=== PATIENT | female | born 1990 | race Caucasian/White ===

== ENCOUNTER 2017-03-03 09:21 | Emergency (ER) | payer MEDICAID ==
[~2017-03-03] VITALS: Ht 167.6 cm; Wt 63.0 kg
[2017-03-03 09:28] VITALS: BP 126/68
[2017-03-03 10:22] LABS: Basophils # (auto) 0.1 uL; Basophils % (auto) 0.4 % (0.0-2.0); Eosinophils # (auto) 0.2 uL; Eosinophils % (auto) 1.5 % (0.0-7.0); Hematocrit 40.3 % (36.0-46.0); Hemoglobin 13.3 g/dL (12.2-16.2); Lymphocytes # (auto) 2.1 uL; Lymphocytes % (auto) 13.1 % (10.0-50.0); Mean Corpuscular Hemoglobin 28.1 pg (28.0-32.0); Mean Corpuscular Volume 85.1 fL (80.0-100.0); Monocytes # (auto) 1.1 uL; Monocytes % (auto) 6.7 % (0.0-12.0); Neutrophils # (auto) 12.6 uL; Neutrophils % (auto) 78.3 % (37.0-80.0); Platelet Count (auto) 447 10^3/uL (140-450); Red Cell Distribution Width 16.9 % (11.6-16.0); White Blood Cell 16.1 10^3/uL (4.4-10.8)
[2017-03-03 10:48] LABS: BUN/Creatinine Ratio 15.5; Bilirubin, Total 0.5 mg/dL (0.2-1.0); Calcium 8.7 mg/dL (8.5-10.1); Total Protein 7.6 g/dL (6.4-8.2)
== END 2017-03-03 12:04 | disposition home or self-care (01) ==
LOC: ER 09:21
DX: O20.0 Threatened abortion (principal); Z3A.12 12 weeks gestation of pregnancy; Z88.2 Allergy status to sulfonamides
CPT/HCPCS: 36415; 76801; 80053; 84702; 85025

== ENCOUNTER 2017-08-04 02:11 | Emergency (ER) | payer MEDICAID ==
[~2017-08-04] VITALS: Ht 167.6 cm; Wt 73.5 kg
[2017-08-04 02:51] LABS: Basophils # (auto) 0 uL; Basophils % (auto) 0.1 % (0.0-2.0); Eosinophils # (auto) 0.1 uL; Eosinophils % (auto) 0.4 % (0.0-7.0); Hematocrit 36.2 % (36.0-46.0); Lymphocytes # (auto) 0.9 uL; Lymphocytes % (auto) 3.5 % (10.0-50.0); Mean Corpuscular Volume 90.7 fL (80.0-100.0); Mean Platelet Volume 7.4 fL (6.9-10.8); Monocytes # (auto) 0.7 uL; Monocytes % (auto) 2.9 % (0.0-12.0); Neutrophils # (auto) 23.2 uL; Neutrophils % (auto) 93.1 % (37.0-80.0); Platelet Count (auto) 261 10^3/uL (140-450); Red Cell Distribution Width 14.1 % (11.8-14.3); White Blood Cell 24.9 10^3/uL (4.4-10.8)
[2017-08-04 03:14] LABS: Albumin 2.8 g/dL (3.4-5.0); BUN/Creatinine Ratio 13.6; Bilirubin, Total 0.3 mg/dL (0.2-1.0); Calcium 8.3 mg/dL (8.5-10.1)
[2017-08-04 03:43] LABS: Urine Bilirubin Negative (Negative); Urine Blood 2+ /uL (Negative); Urine Color Yellow (Yellow); Urine Glucose Normal (Normal); Urine Ketone TRACE (Negative); Urine Mucus FEW (None Seen); Urine Nitrite Negative (Negative); Urine RBC 4 /hpf (0 - 4); Urine Squamous Epithelial Cell MOD /hpf (<5); Urine Urobilinogen Normal (Negative); Urine pH 6.5 (5.0-8.0)
[2017-08-04] MEDS ORDERED: SODIUM CHLORIDE 0.9% 1,000 ML IV ONE (05:00)
[2017-08-04] MEDS ORDERED: cefTRIAXone 1GM/50ML D5W 50 ML IV ONE (05:00)
[2017-08-04 06:18] VITALS: BP 116/50
== END 2017-08-04 07:57 | disposition home or self-care (01) ==
LOC: ER 02:11
DX: O23.42 Unspecified infection of urinary tract in pregnancy, second trimester (principal); O24.912 Unspecified diabetes mellitus in pregnancy, second trimester; Z3A.22 22 weeks gestation of pregnancy; Z88.1 Allergy status to other antibiotic agents
CPT/HCPCS: 36415; 76805; 80053; 80307; 81001; 83605; 84702; 85025; 87040; 96365; 99285; J0696; J7030

== ENCOUNTER 2017-08-27 16:10 | Observation (INO) | payer MEDICAID ==
[2017-08-27] MEDS ORDERED: PREN27TA7 PO (17:46)
[2017-08-27] MEDS ORDERED: CLIN1CAP4 PO (17:47)
== END 2017-08-27 18:00 | disposition home or self-care (01) | DRG 566 ==
LOC: LDRP 16:10
PROVIDERS: ADMIT Obstetrics & Gynecology; ATTEND Obstetrics & Gynecology
DX: O26.892 Other specified pregnancy related conditions, second trimester (principal); R21 Rash and other nonspecific skin eruption; Z3A.27 27 weeks gestation of pregnancy
CPT/HCPCS: 59025; 81002; G0378

== ENCOUNTER 2017-08-27 18:08 | Emergency (ER) | payer MEDICAID ==
[~2017-08-27 18:08] MED LIST: CLIN1CAP4 PO; PREN27TA7 PO
== END 2017-08-27 18:29 | disposition left against medical advice (07) ==
LOC: ER 18:08
DX: R21 Rash and other nonspecific skin eruption (principal); Z53.21 Procedure and treatment not carried out due to patient leaving prior to being seen by health care provider

== ENCOUNTER 2020-10-03 14:45 | Emergency (ER) | payer SELFPAY ==
[~2020-10-03] VITALS: Ht 167.6 cm; Wt 65.8 kg
[~2020-10-03 14:45] MED LIST changes: -CLIN1CAP4 PO; +CLIN300C8 PO
[2020-10-03 14:47] VITALS: BP 131/81
== END 2020-10-03 17:34 | disposition home or self-care (01) ==
LOC: ER 14:45
DX: J20.9 Acute bronchitis, unspecified (principal); Z20.828 Contact with and (suspected) exposure to other viral communicable diseases
CPT/HCPCS: 36415; 71045; 87426; 99284; U0003

== ENCOUNTER 2021-07-20 16:54 | Emergency (ER) | payer SELFPAY ==
[~2021-07-20] VITALS: Ht 170.2 cm; Wt 79.4 kg
[2021-07-20 17:20] VITALS: BP 130/68
[2021-07-20] MEDS ORDERED: SODIUM CHLORIDE 0.9% 1,000 ML IVB ONE (17:30)
[2021-07-20] MEDS ORDERED: ONDANSETRON HCL 4 MG/2 ML VIAL IV ONE (17:30)
[2021-07-20 18:21] LABS: Urine Amorphous Crystal FEW /hpf (None Seen); Urine Bacteria FEW /hpf (None Seen); Urine Blood Negative /uL (Negative); Urine Hyaline Cast FEW /lpf (0 - 2); Urine Specific Gravity 1.013 (1.001-1.035); Urine WBC 4 /hpf (0 - 5)
[2021-07-20 18:47] LABS: Alcohol, Urine < 3.0 mg/dL (0-10); Barbiturate Scree,Urine NEGATIVE (NEGATIVE); Benzodiazephine Screen, Urine NEGATIVE (NEGATIVE); Cannabinoid Screen, Urine POSITIVE (NEGATIVE); Cocaine Screen, Urine NEGATIVE (NEGATIVE); Opiate Scree,Urine NEGATIVE (NEGATIVE); Phencyclidine Screen, Urine NEGATIVE (NEGATIVE)
[2021-07-20 18:55] LABS: Amphetamine Screen, Urine POSITIVE (NEGATIVE)
[2021-07-20 19:10] LABS: Basophils # (auto) 0 10 ^3/uL (0-0.2); Basophils % (auto) 0.2 % (0.0-2.0); Eosinophils # (auto) 0.3 10 ^3/uL (0-0.8); Eosinophils % (auto) 2.4 % (0.0-7.0); Hematocrit 38.7 % (36.0-46.0); Hemoglobin 12.6 g/dL (12.2-16.2); Lymphocytes # (auto) 1.3 10 ^3/uL (0.4-5.4); Lymphocytes % (auto) 10.9 % (10.0-50.0); Mean Corpuscular Hemoglobin 29.4 pg (28.0-32.0); Mean Corpuscular Hgb Conc. 32.5 g/dL (32.0-36.0); Mean Corpuscular Volume 90.4 fL (80.0-100.0); Monocytes # (auto) 0.4 10 ^3/uL (0-1.3); Monocytes % (auto) 3.4 % (0.0-12.0); Neutrophils # (auto) 10.2 10 ^3/uL (1.6-8.6); Neutrophils % (auto) 83.1 % (37.0-80.0); Red Blood Cells 4.28 10^6/uL (4.0-5.20); Red Cell Distribution Width 12.8 % (11.8-14.3); White Blood Cell 12.3 10^3/uL (4.4-10.8)
[2021-07-20 19:29] LABS: Albumin 3.2 g/dL (3.4-5.0); Calcium 7.7 mg/dL (8.5-10.1); Potassium 4.6 mmol/L (3.5-5.1)
[2021-07-20 19:31] LABS: BUN/Creatinine Ratio 28.6
[2021-07-20 19:36] LABS: Bilirubin, Total 0.2 mg/dL (0.2-1.0); Total Protein 6.8 g/dL (6.4-8.2)
== END 2021-07-20 23:45 | disposition home or self-care (01) ==
LOC: EDBD 16:54 → ER 16:54
DX: T40.601A Poisoning by unspecified narcotics, accidental (unintentional), initial encounter (principal); F17.210 Nicotine dependence, cigarettes, uncomplicated; Z79.2 Long term (current) use of antibiotics; Z79.899 Other long term (current) drug therapy; Z88.2 Allergy status to sulfonamides; Y92.89 Other specified places as the place of occurrence of the external cause
CPT/HCPCS: 36415; 80053; 80307; 81001; 83690; 84484; 85025; 93005; 96361; 96374; 99284; J2405; J7030